=== PATIENT | male | born 1950 | race Caucasian/White ===

== ENCOUNTER → 2017-07-09 | Outpatient (CLI) | payer MEDICARE ==
[2017-07-09 07:37] LABS: Anion Gap 9 mmol/L; Blood Urea Nitrogen 24 mg/dL (9-20); Calcium 10.2 mg/dL (8.4-10.2); Carbon Dioxide 30 mmol/L (22-30); Chloride 102 mmol/L (98-107); Glucose 107 mg/dL (74-99); Potassium 5.1 mmol/L (3.5-5.1); Sodium 141 mmol/L (137-145)
--- NOTE | 2017-07-09 09:37 | CT ---
EXAMINATION TYPE: CT ChestAbdPelvis w con DATE OF EXAM: 07/09/2017 COMPARISON: 06/07/2014 HISTORY: renal 66-year-old male follow-up renal cancer. Patient status post right nephrectomy. TECHNIQUE: Contiguous axial scanning of the chest, abdomen, and pelvis performed with IV Contrast, pa tient injected with 80 mL of Visipaque 320. Delayed images through the kidneys were obtained. Coronal /sagittal reconstructions performed. CT DLP: 2278.5 mGycm Automated exposure control for dose reduction was used. FINDINGS: Chest: Heart normal size without pericardial effusion. Mild coronary vessel calcifications are present. Mildly ectatic ascending aorta at 3.8 cm. Conventional vessel branching anatomy. No thoracic lymphadenopathy by CT size criteria. Evaluation of the lungs shows dependent areas of atelectasis. There is a nonspecific 1.1 cm pulmonary nodule peripheral right upper lobe axial image 28. ABDOMEN: No focal liver lesion. Dependent gallstones. No abnormal gallbladder distention. Adrenal glands, left kidney, spleen with inferior splenule, pancreas appear within normal limits. Scattered nonenlarged mesenteric and retroperitoneal lymph nodes. Circumaortic left renal vein. No lymphadenopathy by CT size criteria. Status post right nephrectomy. The nephrectomy bed remains clear with some surgical material here. No dilated small bowel, free fluid, or free air. Fusiform ectasia infrarenal abdominal aorta at 2.5 cm. Oral contrast progressed to the ascending colon. Mild stool burden. No pericolonic inflammatory kimbrough e. Pelvis: Bladder is urine distended. Prostate gland is enlarged measuring 5.8 cm wide. There is lobulated soft tissue impressing into the bladder base from the prostate gland. Tiny left-sided inguinal hernia. No abnormal fluid collection in the pelvis or pelvic lymphadenopathy seen. Multiple pelvic phleboliths. Bones: No osseous destructive process. Tiny 4 mm focal lucency in the left mid sternal body since it shows a fat density suggesting a benign etiology. IMPRESSION: 1. STATUS POST RIGHT NEPHRECTOMY. NO EVIDENCE FOR LOCOREGIONAL RECURRENCE. 2. A 1.1 CM RIGHT UPPER LOBE PULMONARY NODULE IS NONSPECIFIC . SHORT INTERVAL FOLLOW-UP RECOMMENDED T O ENSURE STABILITY AND EXCLUDE THE POSSIBILITY OF A METASTATIC PULMONARY NODULE. 3. TINY 4 MM LUCENCY IN THE LEFT MID STERNAL BODY APPEARS TO SHOW FAT DENSITY SUGGESTING A BENIGN ROSA OLOGY. THIS CAN ALSO BE REASSESSED ON THE PATIENT'S FOLLOW-UP. OTHERWISE, NO OTHER EVIDENCE FOR METAS TATIC DISEASE. 3. PROSTATOMEGALY (5.8 CM WIDE) WITH LOBULATED SOFT TISSUE IMPRESSING ON THE BLADDER BASE. CORRELATE FOR BPH. 4. CHOLELITHIASIS AND ECTATIC ASCENDING AORTA AND INFRARENAL ABDOMINAL AORTA.
== END | disposition home or self-care (01) ==
LOC: RADCTMAIN 06:38
PROVIDERS: ATTEND Urology
DX: R91.1 Solitary pulmonary nodule (principal); N40.0 Benign prostatic hyperplasia without lower urinary tract symptoms; K80.20 Calculus of gallbladder without cholecystitis without obstruction; I77.810 Thoracic aortic ectasia; Z85.528 Personal history of other malignant neoplasm of kidney; Z90.5 Acquired absence of kidney
CPT/HCPCS: 80048; 71260; 74177; 36415; Q9967

== ENCOUNTER → 2022-05-26 | Outpatient (CLI) | payer MEDICARE ==
[2022-05-26 15:20] LABS: Basophils # (A) 0.07 X 10*3/uL (0.00-0.10); Basophils % (A) 1.6 %; Eosinophils # (A) 0.16 X 10*3/uL (0.04-0.35); Eosinophils % (A) 3.7 %; HCT 45.3 % (39.6-50.0); HGB 15.7 g/dL (13.0-17.0); Immature Grans, Automated 0.5 %; Lymphocytes # (A) 1.16 X 10*3/uL (0.90-5.00); MCH 31.1 pg (27.0-32.0); MCHC 34.7 g/dL (32.0-37.0); MCV 89.7 fL (80.0-97.0); Mean Platelet Volume 10.2 fL (9.5-12.2); Monocytes # (A) 0.53 X 10*3/uL (0.20-1.00); Monocytes % (A) 12.4 %; NRBC Per 100 WBC 0 /100 WBCS (0.0-0.0); Neutrophils # (A) 2.35 X 10*3/uL (1.80-7.70); Neutrophils % (A) 54.8 %; Platelet Count 208 X 10*3/uL (140-440); RBC 5.05 X 10*6/uL (4.40-5.60); RDW 12.4 % (11.5-14.5); WBC 4.29 X 10*3/uL (4.50-10.00)
[2022-05-26 18:23] LABS: African American GFR (CKD) 70.1 (60.0-200.0); Anion Gap 10.5 mmol/L (10.00-18.00); Calcium 9.3 mg/dL (8.7-10.3); Carbon Dioxide 24.5 mmol/L (20.0-27.5); Non-African American GFR(CKD) 60.5 (60.0-200.0); Potassium 4.1 mmol/L (3.5-5.5); Prostate Specific Antigen 2.4 ng/mL (0.00-6.50)
== END | disposition home or self-care (01) ==
LOC: LABPAT 10:04
PROVIDERS: ATTEND Urology
DX: Z01.812 Encounter for preprocedural laboratory examination (principal); N40.1 Benign prostatic hyperplasia with lower urinary tract symptoms; R97.20 Elevated prostate specific antigen [PSA]
CPT/HCPCS: 80048; 84153; 85025

== ENCOUNTER 2022-06-04 11:21 | Day surgery (SDC) | payer MEDICARE ==
--- NOTE | 2022-06-03 20:42 | P.GSHP ---
History of Present Illness H&P Date: 06/03/22 Chief Complaint: Weak urinary stream The patient is a 71-year-old white male with a several year history of obstructive voiding symptoms. Specifically, he reports a weak urinary stream, hesitancy, straining, intermittency, urge incontinence, and a feeling of incomplete bladder emptying. He has been treated with alpha blockers, without success. Bladder emptying is adequate. Cystoscopy shows evidence of bilobar BPH. He has elected to undergo a TURP and comes for this reason. Past Medical History Past Medical History: Cancer, Hyperlipidemia, Hypertension, Prostate Disorder Additional Past Medical History / Comment(s): renal cell ca. rt kidney, general aches and pains, enlarged prostate. receives Keytruda immune therapy post brain tumor removal. History of Any Multi-Drug Resistant Organisms: None Reported Past Surgical History: Hernia Repair, Orthopedic Surgery Additional Past Surgical History / Comment(s): rt nephrectomy-07/02/2014, left inguinal repair and umbilical. brain tumor left temporal craniotomy 01/26/22. lt knee scope. colonoscopy. ACL lt knee. Gamma knife radiation tx 02/24/22 Past Anesthesia/Blood Transfusion Reactions: No Reported Reaction Additional Past Anesthesia/Blood Transfusion Reaction / Comment(s): no hx blood transfusion Smoking Status: Former smoker - Past Family History Father Additional Family Medical History / Comment(s): quad bypass Mother Family Medical History: Cancer Additional Family Medical History / Comment(s): colon Medications and Allergies Home Medications Medication Instructions Recorded Confirmed Type Olmesartan/Hydrochlorothiazide 0.5 tab PO HS 03/01/15 06/02/22 History [Benicar Hct 20-12.5 mg Tablet] Ginkgo Biloba 500 mg PO DAILY 05/24/17 06/02/22 History Rosuvastatin [Crestor] 20 mg PO Q2D 05/24/17 06/02/22 History Triple [place] Supplement 1 tab PO DAILY 05/25/17 06/02/22 History Aspirin 325 mg PO BID #60 tab 05/28/17 06/02/22 Rx Alfuzosin HCl [Alfuzosin HCl ER] 10 mg PO HS 06/02/22 06/02/22 History Unk Keytruda Dose Iv 1 dose IV Q21D 06/02/22 06/02/22 History Allergies Allergy/AdvReac Type Severity Reaction Status Date / Time No Known Allergies Allergy Verified 06/02/22 08:28 Surgical - Exam - General well developed, well nourished, no distress - Respiratory normal respiratory effort - Abdomen Abdomen: soft, non tender, no guarding, no rigid, no rebound - Genitourinary normal penis with no external lesions, testicles non-tender - Rectum Rectum: normal sphincter tone, no masses, other (prostate moderately enlarged but smooth) - Psychiatric oriented to time, oriented to person, oriented to place, speech is normal, memory intact Assessment and Plan (1) Benign prostatic hyperplasia with lower urinary tract symptoms Status: Acute Code(s): N40.1 - BENIGN PROSTATIC HYPERPLASIA WITH LOWER URINARY TRACT SYMP SNOMED Code(s): 692416893 Plan: Cystoscopy, bipolar transurethral resection of prostate (TURP). The procedure has been reviewed in detail with the patient. He is aware of potential risks, which include anesthesia, bleeding, infection, persistent voiding symptoms, urinary incontinence, erectile dysfunction, retrograde ejaculation, and vesical neck contracture.
[~2022-06-04 11:21] MED LIST: DEXAMETHASONE SOD PHOSPHATE 4 MG/ML 1 ML VIAL IV ONE; HYDROmorphone 0.5 MG/0.5 ML SYRINGE IVP PRN; ONDANSETRON 4 MG/2 ML VIAL IVP ONE
[2022-06-04] MEDS: LACTATED RINGERS 1,000 ML IV SCH ×2 (12:30→15:01)
[2022-06-04] MEDS ORDERED: LIDOCAINE 1% (10MG/ML) FOR IV START INTRADERMA ONE (13:00)
[2022-06-04] MEDS ORDERED: GLYCOPYRROLATE 0.2 MG/ML 2 ML VIAL ONE (14:57)
[2022-06-04] MEDS ORDERED: HYDROmorphone (PF) 1 MG/ML ONE (14:57)
[2022-06-04] MEDS ORDERED: PROPOFOL 10 MG/ML 20 ML VIAL IV ONE (14:57)
[2022-06-04] MEDS ORDERED: fentaNYL (PF) 50 MCG/ML 2 ML AMP ONE (14:57)
[2022-06-04] MEDS ORDERED: ROCURONIUM 10 MG/ML (5 ML VIAL) IV ONE (14:57)
[2022-06-04] MEDS ORDERED: LIDOCAINE 2% INJ 20 MG/ML (2 ML VIAL) ONE (14:57)
[2022-06-04] MEDS ORDERED: FUROSEMIDE 10 MG/ML 2 ML VIAL ONE (14:57)
[2022-06-04] MEDS ORDERED: SUCCINYLCHOLINE CHLORIDE 200 MG/10 ML VIAL IV ONE (14:57)
[2022-06-04] MEDS ORDERED: MIDAZOLAM 2 MG/2 ML VIAL ONE (14:57)
[2022-06-04] MEDS ORDERED: NEOSTIGMINE 1 MG/ML 10 ML VIAL ONE (14:57)
[2022-06-04] MEDS ORDERED: LACTATED RINGERS 1,000 ML IV ONE (17:46)
--- NOTE | 2022-06-04 18:48 | P.OP ---
Date of Procedure: 06/04/22 Preoperative Diagnosis: BPH with obstruction Postoperative Diagnosis: Same Procedure(s) Performed: Cystoscopy, bipolar transurethral resection of prostate (TURP) Anesthesia: CAMRYN Surgeon: Bob Araujo Estimated Blood Loss (ml): 100 IV fluids (ml): 1,200 Pathology: other (Prostate chips) Condition: stable Disposition: PACU Indications for Procedure: The patient is a 71-year-old white male with a several year history of obstructive voiding symptoms. Specifically, he reports a weak urinary stream, hesitancy, straining, intermittency, urge incontinence, and a feeling of incomplete bladder emptying. He has been treated with alpha blockers, without success. Bladder emptying is adequate. Cystoscopy shows evidence of BPH. He has elected to undergo a TURP and comes for this reason. Operative Findings: Trilobar BPH, visually occluded. Description of Procedure: The patient was taken in the operating room and placed in the dorsolithotomy position. The external genitalia was prepped and draped sterilely. The 25- Canadian [employer] resectoscope sheath was introduced into the bladder. The bladder was inspected. Both ureteral orifices were of normal anatomic location and configuration. No tumors or foreign bodies were seen. Examination of the prostate revealed complete obstruction with a trilobar configuration. Using the bipolar cutting loop, the median lobe was resected up to the verumontanum. Next, the lateral lobes were resected down to the surgical capsule. The resection of the floor of the prostate was then completed, proximal to the verumontanum. Next, the remaining anterior tissue was resected. Lastly, the residual apical tissue was then carefully resected. The apical tissue extended well beyond the verumontanum, and a portion of the apical tissue was not resected to avoid injury to the external urinary sphincter. The resection was carried down to the surgical capsule in all 4 quadrants. The prostatic fossa was then carefully examined, and any areas of bleeding were controlled with electrocautery. Excellent hemostasis was attained. The resectoscope was withdrawn into the bulbous urethra. The external urinary sphincter remained intact. The prostatic fossa was open. The [email or web address] evacuator was used to remove all prostate chips from the bladder. These were saved and sent for pathologic examination. The resectoscope was removed, and a 20 Canadian Duncan catheter was placed. The return was essentially clear. The patient tolerated the procedure well was taken to the recovery room in stable condition.
[2022-06-04] MEDS ORDERED: ACETAMINOPHEN TAB 325 MG TAB PO PRN (21:25)
[2022-06-04] MEDS ORDERED: DEXTROSE 5%-0.45% NACL 1,000 ML IV SCH (21:30)
[2022-06-05 07:36] VITALS: BP 129/65; PULSE 72; RESP 16; TEMP 97.4
--- NOTE | 2022-06-05 08:19 | P.DS ---
Providers Expected date of discharge: 06/05/22 Attending physician: Bob Araujo Primary care physician: Larisa Chowdhury - Discharge Diagnosis(es) (1) Benign prostatic hyperplasia with lower urinary tract symptoms Current Visit: No Status: Acute Hospital Course: On the day of admission, the patient underwent an uncomplicated bipolar transurethral resection of prostate. Discharge home following the procedure was anticipated, but the urine was somewhat bloody requiring catheter irrigation and therefore he was admitted overnight. At the time of discharge, he was afebrile with stable vital signs. He was comfortable. The urine was somewhat bloody, without clots, and the catheter was draining well. Procedures: Cystoscopy, bipolar transurethral resection of prostate (TURP) on 06/04/2022. Patient Condition at Discharge: Good Plan - Discharge Summary Discharge Rx Participant: No New Discharge Prescriptions: No Action Olmesartan/Hydrochlorothiazide [Benicar Hct 20-12.5 mg Tablet] 0.5 tab PO HS Rosuvastatin [Crestor] 20 mg PO Q2D Ginkgo Biloba 500 mg PO DAILY Triple [place] Supplement 1 tab PO DAILY Aspirin 325 mg PO BID #60 tab Alfuzosin HCl [Alfuzosin HCl ER] 10 mg PO HS Unk Keytruda Dose Iv 1 dose IV Q21D Discharge Medication List Olmesartan/Hydrochlorothiazide [Benicar Hct 20-12.5 mg Tablet] 0.5 tab PO HS 03/01/15 [History] Ginkgo Biloba 500 mg PO DAILY 05/24/17 [History] Rosuvastatin [Crestor] 20 mg PO Q2D 05/24/17 [History] Triple [place] Supplement 1 tab PO DAILY 05/25/17 [History] Aspirin 325 mg PO BID #60 tab 05/28/17 [Rx] Alfuzosin HCl [Alfuzosin HCl ER] 10 mg PO HS 06/02/22 [History] Unk Keytruda Dose Iv 1 dose IV Q21D 06/02/22 [History] Follow up Appointment(s)/Referral(s): Bob Araujo MD [STAFF PHYSICIAN] - 06/09/22 Activity/Diet/Wound Care/Special Instructions: Discharge home with Duncan catheter to urinary leg bag. Offer patient an overnight bag if he desires. Encourage oral fluid intake. No straining or strenuous activity. Hold aspirin for 3 weeks. Schedule follow up on 06/09/2022 in the morning for Duncan catheter removal. Discharge Disposition: HOME SELF-CARE
[2022-06-05] MEDS ORDERED: DOCUSATE 100 MG CAP PO SCH (09:00)
== END 2022-06-05 10:11 | disposition home or self-care (01) ==
LOC: OR 11:21 → 4SSUR 18:38 → OR 06-05 10:11
PROVIDERS: ATTEND Urology
DX: N40.1 Benign prostatic hyperplasia with lower urinary tract symptoms (principal); N13.8 Other obstructive and reflux uropathy; I10 Essential (primary) hypertension; N39.41 Urge incontinence; E78.5 Hyperlipidemia, unspecified; F31.9 Bipolar disorder, unspecified; Z79.82 Long term (current) use of aspirin; Z87.891 Personal history of nicotine dependence; Z90.79 Acquired absence of other genital organ(s)
CPT/HCPCS: 52601; J1100; J0690; J2405; 88307

== ENCOUNTER → 2022-11-23 | Outpatient (CLI) | payer MEDICARE ==
--- NOTE | 2022-11-26 00:32 | MR ---
EXAMINATION TYPE: MR brain wo/w con DATE OF EXAM: 11/23/2022 8:51 PM CLINICAL INDICATION:Male, 71 years old with history of C64.1, C79.31; Renal Cell Cancer, Evaluate for Mets COMPARISON: Imaging 06/26/2022 and 04/06/2022 TECHNIQUE: Multi planar, multi sequence imaging was performed through the brain including: T1, T2, In version recovery, susceptibility weighted imaging and gradient echo imaging and Diffusion weighted im aging. The patient was then given intravenous contrast and multi planar, T1 fat-saturation images wer e obtained. IV Contrast: 12 cc Gadavist FINDINGS: Mild cerebral atrophy changes with proportional dilation of ventricular system. Posttreatment changes left posterior parietal region with heterogenous signal with rim of measuring 20 x 12 mm. When geena red to prior, there may be a small focus measuring 5 x 3 mm of new enhancement centrally. Evaluation is somewhat difficult to compare given differences in technique. series 702 image 27 and 701 image 38 . A thin rim of enhancement appears similar otherwise. Overall the cavity has decreased in size geena red to 04/06/2022. Craniotomy changes are noted in this region. There is blooming artifact around the rim of the surgical bed consistent with hemosiderin disposition. Left posterior occipital developmental venous anomaly series 701 image 70. Diffusion-weighted imaging shows no evidence of restricted diffusion to suggest acute/subacute infarc t. Intracranial arterial flow voids are maintained. Midline structures show no abnormality. Scattered foci of high T2 signal intensity are seen within the periventricular white matter. The bone marrow signal is within normal limits. Paranasal sinuses and mastoid air cells: Mucous retention cyst within the right maxillary sinus measu ring up to 2.4 cm. Mild scattered paranasal sinus disease. Visualized orbits: Orbital contents are intact. IMPRESSION: 1. Posttreatment changes to the left parietal region with persistent thin rim of enhancement and mor e conspicuous small nodule-like area of possible enhancement which is not fully seen on prior. This c ould be secondary to slice selection and technique on prior imaging. Attention on follow-up imaging f or stability. No new areas of metastatic disease visualized. 2. Scattered nonspecific white matter changes.
== END | disposition home or self-care (01) ==
LOC: RADMRIMAIN 19:20
PROVIDERS: ATTEND Internal Medicine Hematology & Oncology
DX: C64.1 Malignant neoplasm of right kidney, except renal pelvis (principal); C79.31 Secondary malignant neoplasm of brain; R90.82 White matter disease, unspecified
CPT/HCPCS: 70553; A9585

== ENCOUNTER → 2023-06-01 | Outpatient (CLI) | payer MEDICARE ==
--- NOTE | 2023-06-03 11:48 | MR ---
EXAMINATION TYPE: MR brain wo/w con DATE OF EXAM: 06/01/2023 COMPARISON: HISTORY: Metastatic renal cancer, follow up MRI post treatment, no new symptoms. CONTRAST: Performed utilizing 12 mL intravenous Gadavist gadolinium contrast. TECHNIQUE: Multiplanar, multiecho imaging on a 3.0 Justyna magnet is performed through the brain. Stud y is performed within 24 hours of arrival to the hospital. The craniovertebral junction is normal. The pituitary is normal. Diffusion-weighted imaging is performed. No abnormal hyperintensity is present to suggest an acute i ntracranial infarct or acute ischemic change. There is an area of increased signal on T2 and inversion recovery weighted sequences within the left parietal-occipital region. Adjacent vasogenic edema is present. Following contrast administration thi s area has some enhancement with a small ring lesion measuring approximately 1.1 x 0.5 x 1.8 cm suspi cious for metastatic lesion. Some blooming artifact appears to be present. Vasogenic edema has increa sed over the interval. Degree of enhancement has increased over the interval. No additional suspicious metastatic lesions evident. Ventricles and sulci are appropriate for the patient age. There are scattered retention cysts within the right maxillary sinus. Some minimal mucosal thickening is within anterior ethmoid air cells. Remaining paranasal sinuses and mastoid air cells are clear. IMPRESSION: 1. Stable appearing lesion size with increasing vasogenic edema left parietal occipital junction meta static lesion. 2. No new lesions identified.
== END | disposition home or self-care (01) ==
LOC: RADMRIMAIN 10:25
PROVIDERS: ATTEND Internal Medicine Hematology & Oncology
DX: C79.31 Secondary malignant neoplasm of brain (principal); C64.1 Malignant neoplasm of right kidney, except renal pelvis
CPT/HCPCS: 70553; A9585

== ENCOUNTER → 2023-06-19 | Outpatient (CLI) | payer MEDICARE ==
--- NOTE | 2023-06-24 08:32 | MR ---
EXAMINATION TYPE: MR abdomen wo/w con DATE OF EXAM: 06/19/2023 10:53 AM CLINICAL INDICATION:Male, 72 years old with history of C64.1 NEOPLASM KIDNEY; PHH, Malignant neoplasm right kidney, hx nephrectomy, abnormal CT. COMPARISON: CT scan abdomen from 05/31/2023, 07/09/2017. TECHNIQUE: Multiplanar multi-sequence imaging was performed without contrast. Post contrast imaging was performed. Post IV contrast subtraction images were also submitted for review. IV Contrast: 11 cc Gadavist FINDINGS: LOWER CHEST: No gross irregularity. ABDOMEN Liver: No evidence for cirrhosis. Chemical shift signal dropout on out of phase imaging. Gallbladder and Bile ducts: No evidence for ductal dilation, or biliary stricture or evidence of chol edocholithiasis. The gallbladder is within normal limits. Pancreas: No ductal dilation. No evidence for solid mass. Spleen: Normal for size. Adrenal glands: Unremarkable. Kidneys: Right: The right surgical bed mass seen on 05/31/2023 is redemonstrated measuring 27 x 23 x 36 mm. Th is is a very close to the inferior vena cava and separate from the adrenal gland. Left kidney No evidence for obstructive uropathy. No suspicious renal masses. Stomach and Bowel: No evidence for bowel wall thickening or evidence for obstruction.. Peritoneum: No evidence of pneumoperitoneum or free fluid. Vasculature: No aortic aneurysm. Left circumaortic renal vein. Musculoskeletal: The osseous structures appear intact. Lymph Nodes: No additional evidence for lymphadenopathy. Abdominal wall: Unremarkable. IMPRESSION: Post nephrectomy changes with persistent enhancing soft tissue mass in the surgical bed concerning fo r metastatic disease. Findings are new from 07/09/2017. No additional evidence for metastatic disease visualized in the abdomen or pelvis.
== END | disposition home or self-care (01) ==
LOC: RADMRIMAIN 09:51
PROVIDERS: ATTEND Internal Medicine Hematology & Oncology
DX: C64.1 Malignant neoplasm of right kidney, except renal pelvis (principal); M79.89 Other specified soft tissue disorders; Z90.5 Acquired absence of kidney
CPT/HCPCS: 74183; A9585

== ENCOUNTER 2024-06-05 11:51 | Day surgery (SDC) | payer MEDICARE ==
[2024-06-02 08:48] VITALS: BMI 30.7
[2024-06-05 12:22] VITALS: TEMP 98
[2024-06-05] MEDS ORDERED: MIDAZOLAM 2 MG/2 ML VIAL IV PRN (12:23)
[2024-06-05] MEDS ORDERED: HYDROmorphone 0.5 MG/0.5 ML SYRINGE IVP PRN (12:23)
[2024-06-05] MEDS: ONDANSETRON 4 MG/2 ML VIAL IVP ONE (12:47)
[2024-06-05] MEDS: DEXAMETHASONE SOD PHOSPHATE 4 MG/ML 1 ML VIAL IV ONE (12:47)
[2024-06-05] MEDS: LACTATED RINGERS 1,000 ML IV SCH (12:47)
[2024-06-05] MEDS: IV FLUID CONTINUATION 1,000 ML IV ONE (12:50)
[2024-06-05] MEDS ORDERED: PROPOFOL 10 MG/ML 20 ML VIAL IV ONE (13:11)
[2024-06-05] MEDS ORDERED: LIDOCAINE 1% INJ 10MG/ML (20 ML MDV) ONE (13:11)
[2024-06-05] MEDS ORDERED: MIDAZOLAM 2 MG/2 ML VIAL ONE (13:11)
[2024-06-05] MEDS ORDERED: fentaNYL (PF) 50 MCG/ML 2 ML AMP ONE (13:11)
[2024-06-05] MEDS: BUPIVACAINE (PF) 0.25% 30 ML VIAL SQ ONE ×2 (13:15→13:25)
[2024-06-05 14:02] VITALS: BP 136/70; PULSE 83; RESP 17
--- NOTE | 2024-06-05 21:21 | P.OP ---
Date of Procedure: 06/05/24 Preoperative Diagnosis: History of renal cell carcinoma Postoperative Diagnosis: History of renal cell carcinoma Procedure(s) Performed: Mediport removal Anesthesia: MAC Surgeon: Deborah Raymundo Pathology: other (Mediport for gross examination) Condition: stable Disposition: same day Indications for Procedure: 73-year-old male with history of Mediport placement secondary to renal cell carcinoma. Patient is not requiring any further chemotherapy per oncology and patient is requesting removal of port. Risks, benefits and alternatives were provided to the patient and all questions were answered. Operative Findings: Appropriate removal of Mediport Description of Procedure: Patient was brought to the operating suite and placed in supine position on the operating table. Sedation was provided anesthesia patient was then prepped in regular sterile fashion. Local anesthetic was administered over the previous port site incision and incision was made. Dissection was carried towards the catheter and attachment to port. The port was dissected free from surrounding attachments and removed from its pocket. A 3-0 Vicryl [id number] suture was then placed around the catheter site and tied down as the catheter was removed. At this point, the port and catheter were completely retrieved. Cautery was used along capsule. Hemostasis was noted to be maintained. The wound was closed in layers with 3-0 and 4-0 subcuticular Vicryl suture. Sterile dressing was applied. Patient was awakened in the operating suite and taken to postanesthesia care unit in stable condition.
== END 2024-06-05 14:28 | disposition home or self-care (01) ==
LOC: OR 11:51
PROVIDERS: ATTEND Surgery
DX: C64.9 Malignant neoplasm of unspecified kidney, except renal pelvis (principal); I10 Essential (primary) hypertension; E78.5 Hyperlipidemia, unspecified; Z87.891 Personal history of nicotine dependence; Z79.899 Other long term (current) drug therapy
CPT/HCPCS: 36590; J2250; J1100; J0690; J2405; J2003; J3010; J2704; J0665